=== PATIENT | male | born 1970 | race Caucasian/White ===

== ENCOUNTER 2023-02-21 10:22 | Emergency (ER) | payer SELFPAY ==
[~2023-02-21] VITALS: Ht 175.3 cm; Wt 93.0 kg
[2023-02-21] MEDS ORDERED: HYDROCODONE/ACETAMINOPHEN 5/325MG TABLET PO ONE (10:45)
[2023-02-21] MEDS ORDERED: FENTANYL CITRATE/PF 50MCG/ML 2ML VIAL IV NR (12:15)
[2023-02-21] MEDS ORDERED: PROPOFOL 200MG/20ML VIAL IV ONE (12:15)
[2023-02-21 13:17] VITALS: O2SAT 97
[2023-02-21 17:21] VITALS: BP 125/78; PULSE 84; RESP 16; TEMP 98.3
== END 2023-02-21 17:22 | disposition home or self-care (01) ==
LOC: ER 10:36
DX: M54.50 Low back pain, unspecified (principal)
CPT/HCPCS: 73600; 73610; 72131; 73700; 99285; J3010; J2704; Z7610 ×4